=== PATIENT | female | born 1955 | race Caucasian/White ===

== ENCOUNTER 2020-10-21 14:35 | Emergency (ER) | payer OTHER ==
[~2020-10-21] VITALS: Ht 157.5 cm; Wt 48.1 kg
[2020-10-21] MEDS ORDERED: ONDANSETRON 4 MG/2 ML VIAL IM ONE (15:45)
[2020-10-21] MEDS ORDERED: HYDROMORPHONE 1 MG/1 ML DISP.SYRIN IM ONE (15:45)
--- NOTE | 2020-10-21 15:45 | NUR ---
PATIENT WAS MSE BY DR JAIME IN ROOM 04A.
[2020-10-21] MEDS ORDERED: HYDROMORPHONE 1 MG/1 ML DISP.SYRIN ONE (16:08)
[2020-10-21] MEDS ORDERED: ONDANSETRON 4 MG/2 ML VIAL ONE (16:08)
--- NOTE | 2020-10-21 16:25 | NUR ---
DR JAIME SPOKE WITH PATIENT MADE AWARE OF TEST RESULTS.
--- NOTE | 2020-10-21 16:37 | NUR ---
Patient will be discharged to home in stable condition. Written and verbal after care instructions given. Patient verbalizes understanding of instructions. Stressed follow up or return to ER for worsening s/s. Patient waiting for to pick her up.
--- NOTE | 2020-10-21 17:19 | NUR ---
PATIENT WAS TAKEN TO HER CAR IN A WC WAS PICKED BY . PATIENT LEFT NOT IN ANY DISTRESS.
[2020-10-21 17:20] VITALS: BP 112/71
== END 2020-10-21 17:20 | disposition home or self-care (01) ==
LOC: ER 14:35
DX: M48.54XA Collapsed vertebra, not elsewhere classified, thoracic region, initial encounter for fracture (principal); J84.9 Interstitial pulmonary disease, unspecified
CPT/HCPCS: 72100; 96372 ×2; 99284; J1170; J2405; A4663